=== PATIENT | male | born 1960 | race Caucasian/White ===

== ENCOUNTER → 2017-08-14 | Day surgery (SDC) | payer MEDICARE ==
[~2017-08-14] VITALS: Ht 165.1 cm; Wt 65.8 kg
[~2017-08-14] MED LIST: 0.9% Sodium Chloride 1,000 ML IV SCH; BECL8.7H NS; ELVI1TAB2 PO; KEN25CR EXT; LEVO125T6 PO; OMEP20CA11 PO; Sodium Chloride LOK Flush 10 mL Syringe IV PRN; fentaNYL-PF 50 mCg/mL 2 mL Inj IVPUSH PRN
[2017-08-14 12:37] VITALS: BP 121/81; PULSE 78; RESP 14; O2SAT 98
--- NOTE | 2017-08-14 13:32 | PCM.ENDCOL ---
Colonoscopy Date of Service: Aug 14, 2017 Physician Wilfred Castro MD Pre Procedure Diagnosis: Screening Post Procedure Dx & Findings: Polyp hemorrhoids diverticula Procedure Colonoscopy PROCEDURE IN DETAIL: Prep adequate Withdrawal time 7 minutes After unremarkable rectal examination the Olympus video colonoscope was inserted patient's anal canal and was advanced to cecum. Landmarks were identified including the ileocecal valve and appendiceal orifice. Scope was withdrawn systematically. Visualized colonic mucosa showed healthy shiny mucosa with normal healthy-appearing vasculature. In the descending colon, there was a 1 mm polyp which was removed completely using cold forceps. In the sigmoid colon, there were few small to medium diverticula. In the rectum retroflexion was done which showed hemorrhoids. Anal canal was inspected carefully on the way out and hemorrhoids noted. Impression Polyp 1 status post complete removal Diverticula Hemorrhoids Recommendation Repeat colonoscopy in 5 years Diverticular diet Presedation Assessment Risks and Benefits Informed consent was obtained from the patient after all risks and benefits including but not limited to drug reaction, infection, pain, bleeding, perforation, as well as alternatives were discussed. Patient monitoring Continuous pulse oximetry, cardiac monitoring, blood pressure monitoring, IV access, and oxygen at 2L per nasal cannula. Periprocedural Fentanyl: Fentanyl 100mcg Incrementally Midazolam: Midazolam 6mg Incrementally Complications There were no periprocedural complications identified. Post Procedure Plan Post Procedure Recommendations 1. Restrict activities today. 2. Resume normal activities in the morning. 3. Resume medications. 4. Patient informed of normal post procedure side effects as bloating, drowsiness, blood streaking in the stool. 5. average risk CRCS. If colon polyps come back as: -Hyperplastic- can repeat colonoscopy in 10 years -Tubular adenoma- repeat colonoscopy in 5 years -Tubulovillous/villous adenoma- repeat colonoscopy in 3 years -If any dysplasia- return to clinic as soon as possible 6. Please don't hesitate to call me with any questions. Wilfred Castro MD Aug 14, 2017 13:32
[2017-08-14 13:37] VITALS: BP 109/66; PULSE 79; O2SAT 98
[2017-08-14 13:47] VITALS: BP 105/60; PULSE 71; O2SAT 95
[2017-08-14 13:58] VITALS: BP 113/84; PULSE 80; O2SAT 98
--- NOTE | 2017-08-15 17:39 | PATH ---
SURGICAL PATHOLOGY Attending Physician:Wilfred Castro M.D. CASE STATUS: Signed Out PATIENT NAME: MICHELLE VALDEZ PID: [id number] : 1960 DATE COLLECTED:08/14/2017 22:00 SPECIMEN: Colon, Polyp CLINICAL HISTORY: 1). DESCENDING POLYP FINAL DIAGNOSIS: 1.DESCENDING COLON POLYP, BIOPSY: TUBULAR ADENOMA. ICD10 D12.4 GROSS DESCRIPTION: The specimen is received in one formalin filled container labeled with the patient's name, sublabeled "descending polyp" and consists of a 0.2 x 0.1 x 0.1 CM portion of tissue which is entirely submitted in one cassette. 08/14/2017DC MICRO DESCRIPTION: See diagnosis. ICD-9 CODES: CPT CODES: 1: 52834 Electronically Signed Out Du Cooper MD, Ph.D. [facility] Pathology [facility], [place] [address] Technical component performed at [facility], [address] [place] [address] [address], [place], [address]
== END | disposition home or self-care (01) ==
LOC: END 00:38
PROVIDERS: ATTEND Internal Medicine
DX: Z12.11 Encounter for screening for malignant neoplasm of colon (principal); D12.4 Benign neoplasm of descending colon; K57.30 Diverticulosis of large intestine without perforation or abscess without bleeding; K64.8 Other hemorrhoids; F41.8 Other specified anxiety disorders; E78.5 Hyperlipidemia, unspecified; E03.9 Hypothyroidism, unspecified; Z21 Asymptomatic human immunodeficiency virus [HIV] infection status; K21.9 Gastro-esophageal reflux disease without esophagitis; Z87.891 Personal history of nicotine dependence
CPT/HCPCS: 45380; 88305; G0500; J2250; J3010; J7030